=== PATIENT | female | born 1935 | race Caucasian/White ===

== ENCOUNTER → 2017-04-14 | Outpatient (CLI) | payer MEDICARE, BC ==
[~2017-04-14] MED LIST: BENTYL20 MG PO; CYMBALTA PO; DIAZEPAM10 MG PO; ENDOCET 5-3251 EACH PO; FENTANYL1 EAC2 TD; MEDI-MECLIZINE25 M1 PO; NEURONTIN100 MG PO; PANTOPRAZOLE SO40 MG PO; PEPCID AC20 M2 PO; PHENERGAN SUPP25 M1 PR; REMERON15 MG PO; TRAZODONE HCL100 MG; ULTRAM PO; VALIUM2 MG PO; WELLBUTRIN; ZOFRANODT PO
--- NOTE | ~2017-04-14 | MR113 ---
[facility] A Service of [facility] & [facility] RADIOLOGY TEXT RESULTS PATIENT: LAMIN PAIGE LOCATION: [facility] : 34 UNIT #: [id number] AGE: [address]: Umesh Rowan MD SEX: F ORDER DR: [id number] [facility] [address] [place], [place] [address] [id number] O MR#: [id number] Acc #: [id number] NAME: LAMIN PAIGE. : 1935 SEX: F STUDY DATE/TIME: 04/14/2017 12:44 UNIT: [facility] ROOM: STUDY DESCRIPTION: MR Lumbar Wo Contrast Attending Physician: Umesh Rowan M.D. Referring Physician: Umesh Rowan M.D. Ordering Physician: Umesh Rowan M.D. Primary Care Physician: Clair Acevedo M.D. MRI CENTER REPORT This report is preliminary unless electronic signature is present. EXAM MRA of the lumbar spine without contrast, dated 04/14/2017. COMPARISON None. HISTORY Low back pain for a year. Burning across the lower back. FINDINGS Multisequence, multiplanar imaging of the lumbar spine was obtained without contrast. No acute fracture, subluxation or bone edema. Developing small Schmorl nodes are noted in some of the vertebral bodies. Fatty endplate changes are seen at multiple levels. Conus terminates at T12-L1. Signal of conus and cauda equina are within normal limits. Pre and paravertebral soft tissues are unremarkable. L1-2: Disc osteophyte complex with mild bilateral facet changes, hlgr-ue-wkkjfyaa canal stenosis, mild left lateral recess stenosis, mild bilateral neural foraminal narrowing. L2-3: Disc osteophyte complex with mild bilateral facet changes particularly in the left. There is jouz-di-oncxvzak canal stenosis without significant neural foraminal narrowing. L3-4: Disc osteophyte complex which is asymmetrically prominent in the right foraminal to extraforaminal region. Mild bilateral facet changes are noted, worse in the left. Moderate to severe canal stenosis, mild bilateral lateral recess stenosis and mild inferior bilateral neural foraminal narrowing are present. L4-5: Disc osteophyte complex which is asymmetrically prominent in bilateral extraforaminal regions. Mild bilateral facet changes are noted [facility] A Service of [facility] & [facility] RADIOLOGY TEXT RESULTS PATIENT: LAMIN PAIGE LOCATION: [facility] : 34 UNIT #: [id number] AGE: [address]: Umesh Rowan MD SEX: F ORDER DR: particularly in the right. There is gtuq-kn-rzvggihr canal stenosis with mild inferior bilateral neural foraminal narrowing. L5-S1: Disc osteophyte complex with no canal stenosis. Mild inferior bilateral neural foraminal encroachment is noted without neural impingement. IMPRESSION 1. Degenerative changes are at multiple levels, relatively worse at L3-4 followed by L4-5. 2. Conus and cauda equina are unremarkable. Dictated by... Jacek Jones M.D. THIS IS AN ELECTRONICALLY VERIFIED REPORT Jacek Jones M.D. at 04/19/2017 2:44 PM CPR/jjt TD: 04/15/2017 13:01 JOB #: [id number] MRI CENTER REPORT Page 1 of 1 COPY
== END | disposition home or self-care (01) ==
LOC: CMRI 12:14
DX: M47.26 Other spondylosis with radiculopathy, lumbar region (principal)
CPT/HCPCS: 72148

== ENCOUNTER 2017-04-21 19:28 | Emergency (ER) | payer MEDICARE, BC ==
[~2017-04-21] VITALS: Ht 162.6 cm; Wt 65.8 kg
--- NOTE | ~2017-04-21 | CT71 ---
[facility] A Service of [facility] RADIOLOGY TEXT RESULTS PATIENT: LAMIN PAIGE LOCATION: SED : 34 UNIT #: [id number] AGE: [address]: Peggy Lamas MD SEX: F ORDER DR: [id number] [place] [id number] E MR#: [id number] Acc #: [id number] NAME: LAMIN PAIGE. : 1935 SEX: F STUDY DATE/TIME: 04/21/2017 20:51 UNIT: SED ROOM: STUDY DESCRIPTION: CT Head Wo Contrast Attending Physician: Peggy Lamas M.D. Ordering Physician: Peggy Lamas M.D. Primary Care Physician: No Primary Care Physician MEDICAL IMAGING REPORT This report is preliminary unless electronic signature is present. EXAM CT brain without contrast HISTORY Right eye drooping for [address] exam was performed with one or more of the following radiation dose reduction techniques: Automatic exposure control, adjustment of mA and/or kV according to patient size, and iterative reconstruction. FINDINGS CT brain without contrast demonstrates no intracranial hemorrhage, mass, or edema. Mild generalized cerebral and cerebellar cortical atrophy. Mild chronic ischemic changes in the deep white matter bilaterally. No midline shift or focal atrophy or extraaxial fluid collection. IMPRESSION 1. No acute findings. 2. Mild generalized cerebral and cerebellar cortical atrophy. Mild chronic ischemic changes in the deep white matter bilaterally. 3. Interval resolution of the intracranial hemorrhage along the anterior parasagittal left frontal lobe noted on prior CT 09/07/2016. Dictated by... Jamal Self M.D. THIS IS AN ELECTRONICALLY VERIFIED REPORT Jamal Self M.D. at 04/22/2017 2:21 PM DFL/phong [facility] A Service of [facility] RADIOLOGY TEXT RESULTS PATIENT: LAMIN PAIGE LOCATION: SED : 34 UNIT #: [id number] AGE: [address]: Peggy Lamas MD SEX: F ORDER DR: TD: 04/22/2017 08:47 JOB #: [id number] MEDICAL IMAGING REPORT Page 1 of 1
--- NOTE | ~2017-04-21 | EKG ---
PATIENT: LAMIN PAIGE UNIT #: [id number] Ventricular Rate: 86 BPM Atrial Rate: 86 BPM P-R Interval: 164 ms QRS Duration: 76 ms Q-T Interval: 398 ms QTC Calculation(Bezet): 476 ms P Sidney: 40 degrees Calculated R Sidney: -15 degrees Calculated T Sidney: 39 degrees Diagnosis Line: Normal sinus rhythm Diagnosis Line: Possible Left atrial enlargement Diagnosis Line: Low voltage QRS Diagnosis Line: Inferior infarct , age undetermined Diagnosis Line: Cannot rule out Anterior infarct , age Diagnosis Line: undetermined Diagnosis Line: Abnormal ECG Diagnosis Line: When compared with ECG of 03-SEP-2016 15:49, Diagnosis Line: Inferior infarct is now Present Diagnosis Line: Confirmed by ROSHAN GUTIERREZ MD ([id number]) on Diagnosis Line: 04/25/2017 8:00:48 AM INTERPRETING MD: MATT MACKAY
--- NOTE | ~2017-04-21 | CR72 ---
[facility] A Service of [facility] RADIOLOGY TEXT RESULTS PATIENT: LAMIN PAIGE LOCATION: SED : 34 UNIT #: [id number] AGE: [address]: Peggy Lamas MD SEX: F ORDER DR: [id number] [address] [address] [id number] E MR#: [id number] Acc #: [id number] NAME: LAMIN PAIGE. : 1935 SEX: F STUDY DATE/TIME: 04/21/2017 20:51 UNIT: SED ROOM: STUDY DESCRIPTION: CR Chest Single View Portable Attending Physician: Peggy Lamas M.D. Ordering Physician: Peggy Lamas M.D. Primary Care Physician: No Primary Care Physician MEDICAL IMAGING REPORT This report is preliminary unless electronic signature is present. EXAM AP view of the chest. COMPARISON September 03, 2016; June 29, 2016. INDICATIONS 81-year-old female with altered mental status today. Right eye drooping. FINDINGS Calcified granuloma noted in the right lung. There are low lung volumes due to poor inspiratory effort and there is hazy attenuation over the left lung base which is thought to be due to breast shadow, but left pleural effusion and associated left basilar atelectasis or pneumonia cannot be excluded. Cardiomediastinal silhouette is likely within normal limits for portable technique and poor inspiratory effort. There is bronchovascular crowding. No evidence of pneumothorax. IMPRESSION Limited exam due to breast shadow overlying the left lower chest. Small left pleural effusion and associated basilar atelectasis or pneumonia cannot entirely be excluded. Clinical correlation recommended. Lateral view may be helpful. Dictated by... Devan Fuller M.D. THIS IS AN ELECTRONICALLY VERIFIED REPORT Devan Fuller M.D. at 04/26/2017 2:39 PM JEREMIAH/theresa TD: 04/22/2017 09:16 [facility] A Service of [facility] RADIOLOGY TEXT RESULTS PATIENT: LAMIN PAIGE LOCATION: [facility] : 34 UNIT #: [id number] AGE: [address]: Peggy Lamas MD SEX: F ORDER DR: JOB #: [id number] MEDICAL IMAGING REPORT Page 1 of 1
[~2017-04-21 19:28] MED LIST changes: -CYMBALTA PO; -NEURONTIN100 MG PO
[2017-04-21] MEDS ORDERED: NEURONTIN100 MG PO (19:40)
[2017-04-21] MEDS ORDERED: CYMBALTA PO (19:41)
[2017-04-21 19:53] LABS: BASOPHIL# 0.1 X10e3 (0-0.3); BASOPHIL% 0.8 % (0-2.5); EOSINOPHIL# 0.2 X10e3 (0-0.7); EOSINOPHIL% 1.6 % (0.0-7.0); HEMOGLOBIN 15.1 gm/dL (12.0-16.0); LYMPHOCYTE# 4.5 X10e3 (1.0-3.5); LYMPHOCYTE% 44.1 % (17.0-45.0); MEAN CELL VOLUME 91.3 FL (83-96); MEAN CORPUSCULAR HEMOGLOBIN 31.3 PG (28-34); MEAN CORPUSCULAR HGB CONC 34.3 g/dL (30-36); MEAN PLATELET VOLUME 7.9 FL (6.5-11.5); NEUTROPHIL# 4.4 X10e3 (1.5-7.1); NEUTROPHIL% 43.5 % (40-75); PLATELET COUNT 221 X10e3 (140-420); RED BLOOD COUNT 4.82 X10e (3.90-5.30); WHITE BLOOD COUNT 10.2 X10e3 (4.0-10.5)
[2017-04-21 19:54] LABS: DIFF IND NO
[2017-04-21 20:14] LABS: PARTIAL THROMBOPLASTIN TIME 25.4 SECONDS (25.6-38.1)
[2017-04-21 20:15] LABS: ALBUMIN SERUM 3.8 g/dL (3.5-5.0); BILIRUBIN, DIRECT 0.1 mg/dL (0.0-0.2); BILIRUBIN,INDIRECT 0.5 mg/dL (0.0-0.9); BILIRUBIN,TOTAL 0.6 mg/dL (0.2-2.0); CALCIUM SERUM 8.9 mg/dL (8.4-10.2); CREATININE SERUM 0.9 mg/dL (0.6-1.4); GLOM FILT RATE Estimated 59.6 mL/min (>60); MAGNESIUM 2.1 mg/dL (1.6-3.0); POTASSIUM 4.1 mmol/L (3.5-5.1); PROTEIN TOTAL SERUM 6.7 g/dL (6.0-8.3)
[2017-04-21 21:13] LABS: URINE SOURCE CLEAN CATCH
[2017-04-21 21:15] LABS: URINE APPEARANCE HAZY; URINE BILIRUBIN NEG (NEG); URINE BLOOD 1+ (NEG); URINE COLOR YELLOW; URINE GLUCOSE NEG (NORM); URINE KETONE NEG (NEG); URINE LEUKOCYTE ESTERASE NEG (NEG); URINE NITRATE NEG (NEG); URINE PH 6.5 (5-8); URINE PROTEIN NEG (NEG); URINE UROBILINOGEN 0.2 MG/DL (NORM)
[2017-04-21 21:21] LABS: CULTURE INDICATED? NO; MICRO INDICATED? YES; URINE BACTERIA NEG (NEG); URINE SQUAMOUS EPITHELIAL CELL MODERATE /[HPF]
== END 2017-04-21 22:59 | disposition home or self-care (01) ==
LOC: SED 19:28
PROVIDERS: Student in an Organized Health Care Education/Training Program
DX: H02.402 Unspecified ptosis of left eyelid (principal); M79.7 Fibromyalgia; G62.9 Polyneuropathy, unspecified; Z90.49 Acquired absence of other specified parts of digestive tract; Z88.2 Allergy status to sulfonamides; Z79.899 Other long term (current) drug therapy
CPT/HCPCS: 36415; 70450; 71010; 80048; 80076; 81003; 83735; 83880; 85025; 85610; 85730; 93005; 99285

== ENCOUNTER → 2017-04-26 | Outpatient (CLI) | payer MEDICARE, BC ==
[~2017-04-26] MED LIST changes: +CYMBALTA PO; +NEURONTIN100 MG PO
--- NOTE | ~2017-04-26 | MR17 ---
[facility] of [facility] RADIOLOGY TEXT RESULTS PATIENT: LAMIN PAIGE LOCATION: [facility] : 34 UNIT #: [id number] AGE: [address]: MARIELA SAVAGE SEX: F ORDER DR: [id number] [place] [id number] O MR#: [id number] Acc #: [id number] NAME: LAMIN PAIGE. : 1935 SEX: F STUDY DATE/TIME: 04/26/2017 15:24 UNIT: [facility] ROOM: STUDY DESCRIPTION: MR Brain WWo Contrast Attending Physician: Mariela Savage M.D. Referring Physician: Mariela Savage M.D. Ordering Physician: Physician Non-Staff Primary Care Physician: Primary Care Physician No MRI CENTER REPORT This report is preliminary unless electronic signature is present. EXAM Brain MRI with and without HISTORY Hess's palsy. Right eye drooping. Symptoms for a week. COMMENT MRI of the brain was performed prior to and following intravenous administration of 12 mL of MultiHance. Brain IAC protocol utilized. Head CT comparison 04/21/2017. There is a well-defined appearance of the bilateral seventh-eighth nerve complex. There is no definite asymmetric enhancement of the facial nerves. No mass lesion is suspected. The findings do not exclude the diagnosis of Hess's palsy but there is no convincing imaging evidence for the diagnosis. If the patient's symptoms do not progress as expected clinically, followup imaging could be obtained. Evaluation of whole brain imaging shows no evidence for a recent ischemic insult on the diffusion series. There is mild essentially age-appropriate volume loss. There is no Chiari-I malformation. There is no extraaxial fluid collection. The major arterial intracranial flow voids are maintained. The patient has had cataract surgery bilaterally. There is knup-wq-dyzvrtdo white matter signal abnormality most confluent in the periventricular white matter nonspecific but likely due to small vessel disease given age group. A few prominent perivascular spaces noted in the bilateral basal ganglia. The mastoid air cells are clear. The visualized paranasal sinuses are clear. Following contrast administration, evaluation of whole brain shows no definite pathologic intracranial enhancement. Incidental note made of a few prominent vessels at the inferior aspect of the right frontal lobe posteriorly. These are probably not of any further significance clinically. [facility] Service of [facility] RADIOLOGY TEXT RESULTS PATIENT: LAMIN PAIGE LOCATION: [facility] : 34 UNIT #: [id number] AGE: [address]: MARIELA SAVAGE SEX: F ORDER DR: IMPRESSION 1. No acute intracranial abnormality. No recent ischemic insult. 2. Mild generalized volume loss which is essentially age-appropriate with mild to moderate probable sequelae of small vessel disease. 3. Essentially normal appearance of the internal auditory canals. No convincing evidence for Hess's palsy. This does not exclude the diagnosis clinically. If the patient's symptoms do not resolve as expected clinically, consider followup imaging. Dictated by... Alexa Lundberg M.D. THIS IS AN ELECTRONICALLY VERIFIED REPORT Alexa Lundberg M.D. at 04/27/2017 3:08 PM MARLYN/rocael TD: 04/27/2017 12:10 JOB #: [id number] MRI CENTER REPORT Page 1 of 1
== END | disposition home or self-care (01) ==
LOC: SMRI 07:40
DX: G51.0 Bell's palsy (principal)
CPT/HCPCS: 70553; A9581